=== PATIENT | female | born 1950 | race Caucasian/White ===

== ENCOUNTER → 2019-08-05 08:11 | Outpatient (CLI) | payer OTHER | END | disposition home or self-care (01) | LOC: LAB 08:11 | DX: R10.84 Generalized abdominal pain (principal) ==

== ENCOUNTER 2019-08-05 10:00 | Outpatient (CLI) | payer OTHER | END 2019-08-05 13:50 | disposition home or self-care (01) | LOC: TOM 10:00 | DX: R10.84 Generalized abdominal pain (principal) | CPT/HCPCS: 74177; Q9965 ==